=== PATIENT | female | born 1990 | race Caucasian/White ===

== ENCOUNTER 2019-12-20 16:09 | Emergency (ER) | payer OTHER ==
--- NOTE | 2019-12-20 17:08 | ER Document Report ---
ED Medical Screen (RME) - General Chief Complaint: Abdominal Pain Stated Complaint: LEFT SIDE PAIN Time Seen by Provider: 12/20/19 17:05 Mode of Arrival: Ambulatory Information source: Patient Notes: 29-year-old female presented to ED for complaint of left lower abdomen/pelvic pain since a.m. She states she is 9 weeks . She is 2 para 1. She states that she knows her blood type is over she is not sure if it is O+ or O-. She states she does not have any vaginal bleeding at this time. Patient is alert oriented respirations regular nonlabored speaking in full sentences. I have greeted and performed a rapid initial assessment of this patient. A comprehensive ED assessment and evaluation of the patient, analysis of test results and completion of medical decision making process will be conducted by an additional ED providers. - Related Data Allergies/Adverse Reactions: No Known Allergies Allergy (Unverified 12/20/19 16:47) Home Medications: Pre natals Past Medical History - Social History Chew tobacco use (# tins/day): No Frequency of alcohol use: None Drug Abuse: None Physical Exam - Vital signs Vitals: Temp Pulse Resp BP Pulse Ox 98.4 F 101 H 16 138/81 H 99 12/20/19 16:13 12/20/19 16:13 12/20/19 16:13 12/20/19 16:13 12/20/19 16:13 Course - Vital Signs Vital signs: Temp Pulse Resp BP Pulse Ox 98.4 F 101 H 16 138/81 H 99 12/20/19 16:13 12/20/19 16:13 12/20/19 16:13 12/20/19 16:13 12/20/19 16:13
--- NOTE | 2019-12-20 17:29 | ER Document Report ---
ED General - General Chief Complaint: Abdominal Pain Stated Complaint: LEFT SIDE PAIN Time Seen by Provider: 12/20/19 17:05 Mode of Arrival: Ambulatory Information source: Patient Notes: Corrina alvarez; 29-year-old female presented to ED for complaint of left lower abdomen/pelvic pain since a.m. She states she is 9 weeks . She is 2 para 1. She states that she knows her blood type is over she is not sure if it is O+ or O-. She states she does not have any vaginal bleeding at this time. Patient is alert oriented respirations regular nonlabored speaking in full sentences. my note 29-year-old female arrives by POV with chief complaint of having left lower quadrant abdominal pain all day while she was working at [employer].. She called her physician at [facility]. Patient is 9 weeks gravid and is followed by [facility] but has not had ultrasound yet. She was working today and was told to come to the ER. She was supposed to work until 1900 today. Patient complains of a headache but denies any fever chills cough cold diarrhea dysuria constipation sore throat nuchal rigidity. Patient has a 4-year-old daughter at home as well as a both are doing well without sickness. At this time in the [place] there is COVID-19 outbreak. Patient reports her left lower quadrant pain is 2 out of 10 that is sharp and continuous. She believes this is "a round ligament pain." TRAVEL OUTSIDE OF THE [place] IN LAST 30 DAYS: No - HPI Onset: This morning Onset/Duration: Sudden, Persistent Quality of pain: Pressure Severity: Mild Pain Level: 1 Associated symptoms: Headache Exacerbated by: Movement Relieved by: Denies Similar symptoms previously: No Recently seen / treated by doctor: No - Related Data Allergies/Adverse Reactions: No Known Allergies Allergy (Unverified 12/20/19 16:47) Home Medications: Pre natals Past Medical History - General Information source: Patient - Social History Smoking Status: Unknown if Ever Smoked Cigarette use (# per day): No Chew tobacco use (# tins/day): No Frequency of alcohol use: None Drug Abuse: None Lives with: Family Family History: Reviewed & Not Pertinent Patient has suicidal ideation: No Patient has homicidal ideation: No Review of Systems - Review of Systems Constitutional: No symptoms reported EENT: No symptoms reported Cardiovascular: No symptoms reported Respiratory: No symptoms reported Gastrointestinal: See HPI, Abdominal pain Genitourinary: No symptoms reported Female Genitourinary: No symptoms reported Musculoskeletal: No symptoms reported Skin: No symptoms reported Hematologic/Lymphatic: No symptoms reported Neurological/Psychological: No symptoms reported Physical Exam - Vital signs Vitals: Temp Pulse Resp BP Pulse Ox 98.4 F 101 H 16 138/81 H 99 12/20/19 16:13 12/20/19 16:13 12/20/19 16:13 12/20/19 16:13 12/20/19 16:13 Interpretation: Tachycardic - General General appearance: Appears well, Alert - HEENT Head: Normocephalic, Atraumatic Eyes: Normal Pupils: PERRL Sinus: Normal Nasal: Normal Mouth/Lips: Normal Pharynx: Normal Neck: Normal - Respiratory Respiratory status: No respiratory distress Chest status: Nontender Breath sounds: Normal Chest palpation: Normal - Cardiovascular Rhythm: Tachycardia Heart sounds: Normal auscultation Murmur: No - Abdominal Inspection: Normal Distension: No distension Bowel sounds: Normal Tenderness: Tender - LLQ Organomegaly: No organomegaly - Back Back: Normal - Extremities General upper extremity: Normal inspection General lower extremity: Normal inspection - Neurological Neuro grossly intact: Yes Cognition: Normal Orientation: AAOx4 Kevin Coma Scale Eye Opening: Spontaneous Kevin Coma Scale Verbal: Oriented Durbin Coma Scale Motor: Obeys Commands Kevin Coma Scale Total: 15 Speech: Normal Cranial nerves: Normal Cerebellar coordination: Normal Motor strength normal: LUE, RUE, LLE, RLE - Psychological Associated symptoms: Normal affect - Skin Skin Temperature: Warm Skin Moisture: Dry Course - Vital Signs Vital signs: Temp Pulse Resp BP Pulse Ox 98.4 F 101 H 16 138/81 H 99 12/20/19 16:13 12/20/19 16:13 12/20/19 16:13 12/20/19 16:13 12/20/19 16:13 - Laboratory Result Diagrams: 12/20/19 17:15 12/20/19 17:15 Laboratory results interpreted by me: 12/20/19 12/20/19 17:15 17:15 WBC 13.2 H Absolute Neuts (auto) 9.9 H Sodium 134.3 L BUN 4 L Creatinine 0.50 L Beta HCG, Quant 453974.00 H - Diagnostic Test Radiology reviewed: Reports reviewed Critical Care Note - Critical Care Note Total time excluding time spent on procedures (mins): 90 Comments: I advised patient of the ultrasound and lab findings and she appeared to understand Discharge - Discharge Clinical Impression: Round ligament pain Condition: Good Disposition: HOME, SELF-CARE Additional Instructions: Follow-up with your OB doctor next week and return to ER symptoms persist or worsen take medicines as directed Prescriptions: Acetaminophen with Codeine [Tylenol #3 Tablet] 1 each PO Q4HP PRN #20 tablet PRN Reason: Forms: Return to Work
[2019-12-20 17:31] LABS: ABSOLUTE EOSINOPHILS # (AUTO) 0.1 10^3/uL (0.0-0.6); ABSOLUTE LYMPHOCYTES (AUTO) 2.3 10^3/uL (0.5-4.7); ABSOLUTE MONOCYTES (AUTO) 0.8 10^3/uL (0.1-1.4); ABSOLUTE NEUT (AUTO) 9.9 10^3/uL (1.7-8.2); BASOPHILS % (AUTO) 0.4 % (0-2); EOSINOPHILS % (AUTO) 0.9 % (0-6); HEMATOCRIT 36.1 % (36.0-47.0); HEMOGLOBIN 12.6 g/dL (12.0-15.5); LYMPHOCYTES % (AUTO) 17.7 % (13-45); MEAN CORPUSCULAR HEMOGLOBIN 30.5 pg (27.0-33.4); MEAN CORPUSCULAR HGB CONC 34.8 g/dL (32.0-36.0); MEAN CORPUSCULAR VOLUME 88 fl (80-97); MONOCYTES % (AUTO) 5.9 % (3-13); PLATELET COUNT 328 10^3/uL (150-450); RED BLOOD COUNT 4.11 10^6/uL (3.72-5.28); SEGMENTED NEUTROPHILS % (AUTO) 75.1 % (42-78); TOTAL CELLS COUNTED % (AUTO) 100 %; WHITE BLOOD COUNT 13.2 10^3/uL (4.0-10.5)
[2019-12-20 17:37] LABS: APPEARANCE,URINE CLEAR; BILIRUBIN,URINE NEGATIVE (NEGATIVE); COLOR,URINE YELLOW; GLUCOSE, URINE NEGATIVE (NEGATIVE); KETONES,URINE NEGATIVE (NEGATIVE); PROTEIN,URINE NEGATIVE (NEGATIVE); URINE SPECIFIC GRAVITY 1.008; UROBILINOGEN,URINE NEGATIVE mg/dL (<2.0)
[2019-12-20 17:50] LABS: ALBUMIN 4.1 g/dL (3.5-5.0); ALKALINE PHOSPHATASE 82 U/L (38-126); ANION GAP 6 (5-19); ASPARTATE AMINO TRANSFERASE 21 U/L (14-36); BILIRUBIN,TOTAL 0.3 mg/dL (0.2-1.3); BLOOD UREA NITROGEN 4 mg/dL (7-20); CALCIUM 9.3 mg/dL (8.4-10.2); CARBON DIOXIDE 25 mmol/L (22-30); CHLORIDE 103 mmol/L (98-107); GLUCOSE 88 mg/dL (75-110); POTASSIUM 3.9 mmol/L (3.6-5.0); TOTAL PROTEIN 7.3 g/dL (6.3-8.2)
--- NOTE | 2019-12-20 18:12 | RADIOLOGY REPORT (SQ) ---
EXAM DESCRIPTION: U/S OB TRANSVAGINAL W/O DOP IMAGES COMPLETED DATE/TIME: 12/20/2019 5:46 pm REASON FOR STUDY: left pelvic pain COMPARISON: None. TECHNIQUE: Transvaginal static and realtime grayscale images acquired of the pelvis. Additional loreto cted spectral and color Doppler images recorded. All images stored on PACs. bHCG: Not available. CLINICAL DATES: PEARL: 07/23/2020. EGA: 9 weeks 1 day LIMITATIONS: None. FINDINGS: FETUS: Single Living intrauterine . ULTRASOUND EGA: 9 weeks 0 days ULTRASOUND PEARL: 07/24/2020 EFW: Not applicable less than 20 weeks. CRL: 2.3 cm FHR: 169 beats per minute. SURVEY: Too early to assess. AMNIOTIC FLUID: Adequate amount. PLACENTA: Not yet developed due to early gestation. SUBCHORIONIC BLEED: No. SIZE OF BLEED: Not applicable. UTERUS: No masses. No anomalies. CERVICAL LENGTH: 3.3 cm Closed. RIGHT ADNEXA: Not visualized due to overlying bowel gas. LEFT ADNEXA: Not visualized due to overlying bowel gas. FREE FLUID: None. OTHER: No other significant finding. IMPRESSION: LIVING INTRAUTERINE . EGA: 9 weeks 0 days Trimester of : First trimester - 0 to 13 weeks. TECHNICAL DOCUMENTATION: JOB ID: [id number] [employer]- All Rights Reserved rev-01/19 Reading location - IP/workstation name: [email or web address]
[2019-12-20 19:41] VITALS: BP 127/60
== END 2019-12-20 19:42 | disposition home or self-care (01) ==
LOC: ER 16:09
DX: O26.891 Other specified pregnancy related conditions, first trimester (principal); R10.2 Pelvic and perineal pain; R10.32 Left lower quadrant pain; R51 Headache; Z3A.09 9 weeks gestation of pregnancy
CPT/HCPCS: 36415; 76817; 80053; 81001; 84702; 85025; 86900; 86901; 99285